=== PATIENT | male | born 1975 | race Caucasian/White ===

== ENCOUNTER 2021-11-05 00:14 | Emergency (ER) | payer OTHER ==
[2021-11-05 01:39] LABS: HCT 52.2 % (42.0-52.0); HGB 18.3 g/dl (13.2-18.0); MCH 31.5 pg (25.0-31.0); MCHC 35.1 g/dL (32.0-36.0); MCV 89.8 fL (78.0-100.0); MPV 9.6 fL (6.0-9.5); RBC 5.81 M/uL (4.70-6.00); RDW 12.8 % (11.5-14.0); WBC 6.9 K/uL (4.0-10.5)
[2021-11-05 01:56] LABS: ACETAMINOPHEN (TYLENOL) < 2.0 ug/mL (10.0-30.0); BUN 12 mg/dL (7-18); BUN/CREAT RATIO (CALC) 13.8 RATIO; CHLORIDE 104 mmol/L (98-107); CO2 (BICARBONATE) 22 mmol/L (21-32); CREATININE 0.87 mg/dL (0.67-1.17); GLUCOSE 102 mg/dL (74-106); POTASSIUM 3.8 mmol/L (3.5-5.1)
== END 2021-11-05 11:04 ==
LOC: FER 00:14
PROVIDERS: Emergency Medicine
DX: F10.129 Alcohol abuse with intoxication, unspecified (principal); Y90.8 Blood alcohol level of 240 mg/100 ml or more
CPT/HCPCS: 36415; 80048; 96372; 99284; G0480; J1200; J1630; J2250